=== PATIENT | female | born 1980 | race Caucasian/White ===

== ENCOUNTER 2019-09-03 17:00 | Emergency (ER) | payer MEDICAID ==
[~2019-09-03] VITALS: Ht 162.6 cm; Wt 93.4 kg
[2019-09-03 17:10] VITALS: Ht 162.6 cm; Wt 93.4 kg
[2019-09-03 17:48] VITALS: BP 136/91
== END 2019-09-03 17:48 | disposition home or self-care (01) ==
LOC: ED 17:00
DX: R51 Headache (principal); L53.9 Erythematous condition, unspecified; Y04.8XXA Assault by other bodily force, initial encounter; Y93.89 Activity, other specified; Y92.89 Other specified places as the place of occurrence of the external cause; Y99.8 Other external cause status